=== PATIENT | female | born 1975 | race Caucasian/White ===

== ENCOUNTER 2016-07-26 12:35 | Outpatient (CLI) | payer OTHER ==
[2014-03-10 12:28] VITALS: BP 145/98
--- NOTE | 2016-07-26 16:42 | Diagnostic Imaging Report ---
[facility] [address] [facility].[address] [address] Report Submission Date: Jul 26, 2016 4:40:05 PM CDT Patient Study Name: LINWOOD BLUE Date: Jul 26, 2016 12:53:53 PM CDT Modality Type: CR Gender: F Description: SPINE : 71 Institution: [facility] Physician: ROSHNI GALLEGOS (DISTRIBUTION SPECIALIST) - OP Cervical spine - three views Clinical history: Neck pain. Findings: Examination of the cervical spine in AP, lateral and open mouth views with comparison to examination of 06/25/2013 demonstrates the vertebrae to be anatomically aligned. Prevertebral soft tissues are within normal limits. The C1-2 articulation is normal and the base of the odontoid is intact. There is no evident fracture. Impression: 1. No fracture. 2. No significant change. Electronically signed on Jul 26, 2016 4:40:05 PM CDT by: Taras WYMAN
--- NOTE | 2016-07-26 16:42 | Diagnostic Imaging Report ---
[facility] [address] [facility].[address] [address] Report Submission Date: Jul 26, 2016 4:41:40 PM CDT Patient Study Name: LINWOOD BLUE Date: Jul 26, 2016 1:01:49 PM CDT Modality Type: CR Gender: F Description: SPINE : 71 Institution: [facility] Physician: ROSHNI GALLEGOS (PARTY PLAN SALESPERSON) - OP Lumbar spine - three views Clinical history: Low back pain radiating to the left hip. Findings: Examination lumbar spine in AP, lateral and lateral coned-down views demonstrates mild dextroscoliosis of the thoracolumbar spine. Pedicles are intact and the paravertebral soft tissues are within normal limits. There is no evident fracture. Impression: 1. Mild dextroscoliosis. 2. No fracture. Electronically signed on Jul 26, 2016 4:41:40 PM CDT by: Taras WYMAN
== END 2016-07-26 12:36 ==
LOC: RAD 12:35
PROVIDERS: ATTEND Nurse Practitioner Family
DX: M54.5 Low back pain (principal); M54.2 Cervicalgia
CPT/HCPCS: 72040; 72100

== ENCOUNTER 2016-08-24 12:07 | Outpatient (CLI) | payer OTHER ==
[2014-03-10 12:28] VITALS: BP 145/98
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
== END 2016-08-24 12:08 ==
LOC: RAD 12:07
PROVIDERS: ATTEND Nurse Practitioner Family

== ENCOUNTER 2016-09-10 14:03 | Outpatient (CLI) | payer OTHER ==
[2014-03-10 12:28] VITALS: BP 145/98
== END 2016-09-10 14:04 ==
LOC: POD 14:03
PROVIDERS: ATTEND Podiatrist
DX: L84 Corns and callosities (principal); M79.672 Pain in left foot
CPT/HCPCS: 99213

== ENCOUNTER 2016-10-29 13:34 | Outpatient (CLI) | payer OTHER ==
[2014-03-10 12:28] VITALS: BP 145/98
== END 2016-10-29 13:35 ==
LOC: POD 13:34
PROVIDERS: ATTEND Podiatrist
DX: B07.0 Plantar wart (principal)
CPT/HCPCS: 99213

== ENCOUNTER → 2017-01-21 | Outpatient (CLI) | payer OTHER ==
[2014-03-10 12:28] VITALS: BP 145/98
== END ==
LOC: RAD 09:48
PROVIDERS: ATTEND Nurse Practitioner Family
DX: M85.80 Other specified disorders of bone density and structure, unspecified site (principal)
CPT/HCPCS: 77080

== ENCOUNTER 2017-01-28 13:18 | Outpatient (CLI) | payer MEDICARE, OTHER ==
[2014-03-10 12:28] VITALS: BP 145/98
== END 2017-01-28 13:20 ==
LOC: POD 13:18
PROVIDERS: ATTEND Podiatrist
DX: B07.0 Plantar wart (principal)
CPT/HCPCS: G0463

== ENCOUNTER 2017-02-22 14:23 | Outpatient (CLI) | payer MEDICARE, OTHER ==
[2014-03-10 12:28] VITALS: BP 145/98
== END 2017-02-22 14:24 ==
LOC: POD 14:23
PROVIDERS: ATTEND Podiatrist
DX: B07.0 Plantar wart (principal); M79.672 Pain in left foot
CPT/HCPCS: G0463

== ENCOUNTER 2017-05-10 13:52 | Outpatient (CLI) | payer MEDICARE, OTHER ==
[2014-03-10 12:28] VITALS: BP 145/98
== END 2017-05-10 13:53 ==
LOC: POD 13:52
PROVIDERS: ATTEND Podiatrist
DX: B07.0 Plantar wart (principal); M79.672 Pain in left foot
CPT/HCPCS: G0463

== ENCOUNTER 2018-05-25 09:55 | Outpatient (CLI) | payer MEDICARE, OTHER ==
[2014-03-10 12:28] VITALS: BP 145/98
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
== END 2018-05-25 09:56 ==
LOC: POD 09:55
PROVIDERS: ATTEND Podiatrist Foot & Ankle Surgery
DX: B07.0 Plantar wart (principal)
CPT/HCPCS: 99212; G0463

== ENCOUNTER 2018-05-29 17:59 | Emergency (ER) | payer MEDICARE, OTHER ==
[2018-05-29] MEDS ORDERED: KETOROLAC TROMETHAMINE 60 MG/2 ML VIAL IM ONE (18:13)
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
[2018-05-29 19:39] VITALS: BP 132/74
== END 2018-05-29 19:37 | disposition home or self-care (01) ==
LOC: ED 17:59
DX: S43.401A Unspecified sprain of right shoulder joint, initial encounter (principal); W03.XXXA Other fall on same level due to collision with another person, initial encounter; Y93.89 Activity, other specified; Y92.009 Unspecified place in unspecified non-institutional (private) residence as the place of occurrence of the external cause
CPT/HCPCS: 73030; 96372; 99283; J1885

== ENCOUNTER 2018-06-07 09:02 | Day surgery (SDC) | payer MEDICARE, OTHER ==
[~2018-06-07 09:02] MED LIST: BUPIVACAINE HCL 0.25% (2.5MG/ML) PF 30 ML VIAL IJ ONE; LACTATED RINGERS 1,000 ML IV.SOLN IV ONE; LIDOCAINE HCL 1% PF 300MG/30ML VIAL ONE; LIDOCAINE HCL 2% PF 100MG/5ML VIAL IJ ONE; MIDAZOLAM HCL 2 MG/2 ML VIAL ONE; PROPOFOL 200 MG/20 ML VIAL IV ONE; fentaNYL CITRATE/PF 100 MCG/2 ML INJ. ONE
[2018-06-07] MEDS ORDERED: PREGNANCY TEST KIT 1 EACH KIT MC ONE (09:11)
[2018-06-07] MEDS ORDERED: HYDROcodone /APAP 5/325 1 EACH TABLET ONE (13:36)
--- NOTE | 2018-06-08 10:48 | Operative Note ---
PROCEDURE DATE: 06/07/2018 PREOPERATIVE DIAGNOSIS: Plantar verrucae, left foot x7. POSTOPERATIVE DIAGNOSIS: Plantar verrucae, left foot x7. PROCEDURE PERFORMED: Excision/destruction of plantar verrucae x7 with sharp blade and CO2 laser x7. SURGEON: Glen Parkinson D.P.M. AMUSEMENT PARK WORKER(S): Not applicable. ANESTHESIA: Monitored anesthesia care (MAC) with local ankle block. HEMOSTASIS: Less than 30 mL. MATERIALS: None. INJECTABLES: Local block consisting of a 1:1 mix of 1% lidocaine plain and 0.25% Marcaine plain totaling 20 mL with a circumferential left ankle block. COMPLICATIONS: None. INDICATIONS FOR PROCEDURE: Faviola Martinez is a 43-year-old female who presented to clinic on 05/22/18 for plantar warts on the left foot. She started with only a couple several years before but they have progressively worsened in number and size. She was sent here as a referral from Dr. Destiny Sommers. She has had them total for about 2 years. She has been unsuccessful with other modalities with liquid nitrogen or other liquids, with duct tape, patches, etcetera and she was unable to get them gone from any other means so far including efforts to trim them out by another physician. She would like to have them surgically removed and after discussing other options that is the decision she would like to do. The patient had the risks and benefits of surgery discussed with her that include but are not limited to bleeding, infection, return of verrucae again, need for additional surgery, loss of limb, loss of life and the patient has agreed both by written and verbal consent to go forward with surgery at this time for excision/destruction of plantar verrucae x7 with a CO2 laser possibly as well as sharp debridement. The consent was signed and placed in the chart. The patient had no further questions. The patient underwent a full History and Physical where we went over everything and all her questions were answered appropriately and satisfactorily for the patient. She looked forward to surgery. PROCEDURE IN DETAIL: The patient was brought to the preoperative area today and the operative site was marked with an indelible pen. All warts were marked for surgery today as well. The patient was under sedation, brought to the operating room and placed on the table in a supine position. A time-out was called and all present on the operating room team were in agreement with patient name and location of planned procedure. Monitored anesthesia care anesthesia was then obtained for the patient and under this anesthesia local anesthesia was obtained about the patients left ankle with a circumferential block consisting of 20 mL of a 1:1 mix of 1% lidocaine plain and 0.25% Marcaine plain. The patient then had a left ankle tourniquet applied with appropriate padding. The foot was then scrubbed, prepped and draped with a Betadine prep in order to avoid the chlorhexidine which has alcohol that would be more flammable. After appropriate prep the left foot had an Esmarch bandage applied to exsanguinate the left foot and the tourniquet was inflated to 250 mmHg. A sharp blade was utilized to debride all 7 warts down to bleeding tissue. There was 1 additional spot that was questionable and upon debridement I did not feel that was a new verruca and we left it alone at that time. Upon good excision of overlying tissue at these warts, the CO2 laser was brought over and placed at 3 espinoza. Prior to use of the CO2 laser, however, extra caution was given with regards to everyone using the appropriate goggles and appropriate mask for laser use in the room. We also had very wet blue drapes all around the foot and on the distal part of the table to protect from the laser causing any kind of a flammable problem. With appropriate precautions the CO2 laser was then utilized on all verrucae of the left foot. A curette was then utilized to scrape out charred tissue and this was repeated 2 or 3 times on the different warts from the CO2 laser to the curette again. The edges of the wounds were also cleaned up with a #15 blade. It should be noted that we were able to get just down into the basement membrane and slightly through the basement membrane revealing some fat tissue to know that we have gone far enough to destroy the wart. The patient knew that this would likely be the case and that there would be likely/possible scarring due to penetrating the basement membrane to make sure that we got everything. All sites upon good satisfactory excision of the verrucous material was then lasered one last time with the CO2 laser at a low setting of 3 espinoza. It should be noted that during the serial ablations the wattage was placed at 4 for one of the rounds of ablating the warts. Again, at the final ablation the espinoza were placed at 3.0 to help with cauterizing. Upon completion of this at all the wart surfaces and deeming them satisfactorily removed the ankle tourniquet was deflated and a prompt hyperemic response was noted to all the toes of the left foot. A fairly large amount of bleeding ensued from several of the wound sites. A Bovie tip was then utilized to help with achieving hemostasis which was achieved fairly well at each of the sites. At this time the foot was cleaned and Silvadene, Adaptic, 4x4 gauze, Kerlix and a 4-inch Erasmo wrap were applied for dressings. The patient was emerged from MAC anesthesia and sent to recovery with vital signs stable and vascular status intact to all the toes of the left foot. The patient and her were visited after the surgery and discussed with them again the importance of using the surgical shoe at all times and keeping her foot elevated as much as possible utilizing crutches. She may weight bear a little bit but she was encouraged to keep it very minimal. The patient understands this. She also understands that she is to begin taking the [place] right away after she leaves to stay ahead of the pain. She was given [place] 5/325 mg and can take 1 every 4-6 hours as needed for pain. The patient also was instructed to begin taking a baby aspirin daily just to help with thinning her blood to cover the fact that she may not be using her leg as much right now and to help prevent a blood clot. The patient had no further questions or concerns at this time. She will follow up with me in clinic on Tuesday at the [facility] clinic next door. We will see her to check for any infection. The patient had no further questions, nor did her and they were very grateful for the services today. X GLEN PARKINSON D.P.M. DATE SIGNED TIME SIGNED Yara JOB#: [id number] MTDD
== END 2018-06-07 14:20 | disposition home or self-care (01) ==
LOC: OPSURG 09:02
PROVIDERS: ATTEND Podiatrist Foot & Ankle Surgery
DX: B07.0 Plantar wart (principal)
CPT/HCPCS: 17110; A9270; J2001; J2250; J2704; J3010; J7120

== ENCOUNTER 2018-06-29 11:02 | Outpatient (CLI) | payer MEDICARE, OTHER ==
--- NOTE | 2018-07-03 18:42 | OP Clinic Progress Note ---
SUBJECTIVE: Faviola Martinez is a 43-year-old female who presents to the clinic today for follow-up of plantar wart sharp excision and with CO2 laser performed on 06/07/18. The patient states that she is doing well. She has very minimal pain and is trying to stay off of the foot for the most part. She is using her surgical shoe and crutches. She puts very minimal weight on that left foot. The patient denies any other concerns or problems and does not admit to any fevers, chills, nausea, vomiting, shortness of breath or chest pain at this time. OBJECTIVE: Vitals: Temperature 98.1 degrees Fahrenheit, heart rate 73, respiration rate 14, blood pressure 133/76, oxygen saturation 96% on room air. Vascular: 2+ DP and PT pulses of the left foot. Capillary refill time is less than 3 seconds to the toes, left foot. There is no edema noted, left foot. Dermatologic: There are 7 open lesions still, some with an eschar forming over the top. These eschars for the most part were not very stable and were removed with some not very viable tissue underlying which was debrided to the best of my ability today. These wounds for the most part are still holding a decent amount of depth and I am waiting for them to fill in appropriately so they can heal appropriately. All the unstable eschars were removed today and 1 stable eschar was left underneath the left foot. The wounds have no signs of erythema, purulence or malodor noted. No signs of infection. Overall it seems that the wounds are slightly improving in terms of size and hopefully depth. Musculoskeletal: There is still mild pain on palpation noted with debridement of the surgical sites of the left foot. There are no gross abnormalities noted, left foot. Neurologic: Light touch sensation is intact to the toes, left foot. Psychiatric: Mental status is grossly normal. Affect is normal. ASSESSMENT AND PLAN: 1. Postoperative state, Z98.890. 2. Verrucae plantaris, B07.0, plantar verrucae x7, left foot. 3. Open wound of plantar aspect of foot, left, subsequent encounter, S91.302D (status post surgery excision of plantar warts x7, left foot 06/07/18). PROCEDURE #1: Debridement of 6 open lesions underneath the left foot were performed with a sharp #15 blade own and including subcutaneous tissue measuring less than 20 sq. cm. Mild bleeding was noted but not very much at all. The tissue is struggling to seem very viable underneath these areas still. It seems to be slow to recover from the laser therapy and I am still awaiting these wounds to really kick into gear to heal well. The wounds were rinsed with normal saline and dressed with Medihoney, 4x4 gauze, Kerlix and a 4-inch Erasmo wrap. The patient is to leave the dressings clean, dry and intact until 2 weeks from now when we will see her on a Tuesday in outpatient clinic. We are going to give it a little more time to see if they scab over appropriately and if so we will see if they continue to heal with stable eschars while they heal underneath. Historically these wounds take about 3-6 weeks to heal and we are at about 3 weeks now. The patient knows that we are hoping between 3 and 6 weeks she will be healed and we will continue to have as small amount of pressure on that foot as we can. We will have the patient return to the clinic in 2 weeks as mentioned above for follow-up and then 2-1/2 to 3 weeks after that. The patient has no other questions and we will see her in a couple weeks. Ahsan KruseP.M. (Dictated/Not Signed) Yara Job#: [id number] MTDD
== END 2018-06-29 11:04 ==
LOC: POD 11:02
PROVIDERS: ATTEND Podiatrist Foot & Ankle Surgery
DX: Z98.890 Other specified postprocedural states (principal)
CPT/HCPCS: 11042; A4554

== ENCOUNTER 2018-07-14 08:52 | Outpatient (CLI) | payer MEDICARE, OTHER ==
--- NOTE | 2018-07-18 14:58 | OP Clinic Progress Note ---
SUBJECTIVE: Faviola Martinez is a 43-year-old female presenting today for follow- up postoperative appointment from surgery consisting of sharp excision of plantar warts with CO2 laser performed on 06/07/18. The patient is doing great and states that she is still for the most part staying off of that foot and using the surgical shoe and crutches. She is not putting it in her bathtub water at all during this time. She has no concerns or issues and no pain at this time. OBJECTIVE: Vitals: Temperature 97.4 degrees Fahrenheit, blood pressure 139/80, heart rate 83, respiration rate 15, oxygen saturation 98% on room air. Vascular: 2+ DP and PT pulses of the left foot. Capillary refill time is less than 3 seconds to the toes, left foot. There is no edema noted, left foot. Dermatologic: There are still 7 lesions that are covered with a stable eschar at this time. There is no erythema, edema, malodor or any drainage of any kind noted. There are no other concerning areas or open lesions at all. The size of the eschar area where the wound was seems to be getting smaller at this time. Musculoskeletal: There is no pain on palpation noted on the left foot eschar areas. There are no gross abnormalities noted, left foot. Neurologic: Light touch sensation is intact to the toes, left foot. Psychiatric: Mental status is grossly normal. Affect is normal. ASSESSMENT AND PLAN: 1. Postoperative state, Z98.890. 2. Verrucae plantaris, B07.0, plantar verrucae x7, left foot, history. There were no procedures performed today. The stable dry eschars are being left intact at this time and will be left there until they fall off on their own. The patient is healing underneath them and the wounds seem to be getting smaller on the left foot. A dry Band-Aid was placed over the distal forefoot eschars and one over the great toe eschar for protection. The second toe eschar is stable and incredibly small and left alone. A 4-inch Erasmo wrap was applied around the foot and ankle and this will be left there for protection as well as to keep any swelling down. The patient was encouraged to continue non-weightbearing as much as she can in order to prevent or reduce the likelihood of scarring. The patient would prefer this. She is continuing to use the crutches and understands that she seems to be healing at a little slower rate than most do. The patient understands this and will continue treatment as directed and will follow instructions with limiting weight-bearing. She was told that in the next 2-1/2 weeks toward the end if she starts to have eschars coming off then she is encouraged to use the shower as long as she washes her foot last as long as everything is still looking stable and dry under her foot. She was discouraged from doing any baths with her foot in the water until all the scabs are gone. She understands this and has no further questions. The patient will return to the clinic on August 03, which is a when I get back in town. She knows that I will be out of town the through the this month. She will need to report to her primary care doctor or the ER if there is any concerns in the meantime. Glen Parkinson D.P.M. (Dictated/Not Signed) Yara Job #: [id number] MTDD
== END 2018-07-14 09:40 ==
LOC: POD 08:52
PROVIDERS: ATTEND Podiatrist Foot & Ankle Surgery
DX: Z98.890 Other specified postprocedural states (principal); B07.0 Plantar wart
CPT/HCPCS: 99211; A4554

== ENCOUNTER 2018-08-03 09:13 | Outpatient (CLI) | payer MEDICARE, OTHER ==
--- NOTE | 2018-08-08 14:48 | OP Clinic Progress Note ---
SUBJECTIVE: Faviola Martinez is a 43-year-old female seen for follow-up today of surgery performed on 06/07/18 where she had sharp excision of plantar warts with CO2 laser performed. The patient has been slow to heal and was last seen on 07/14/18. We gave her a few weeks break and left her scabs alone that were on the 7 locations of the left foot last time. She states that just under a week ago she finally stopped wearing the surgical shoe and using the crutches and began walking in a regular shoe. She had mild discomfort at the beginning and now has no pain at all walking around. She is feeling great and hopeful that she can continue her progress. She does not admit to any fevers, chills, nausea, vomiting, shortness of breath or chest pain at this time. She admits to doing showers normally at this time. OBJECTIVE: Vitals: Heart rate 70, respiration rate 16, blood pressure 136/88, O2 saturation is 99% on room air. Vascular: 2+ DP and PT pulses of the left foot. Capillary refill time is less than 3 seconds to the toes, left foot. There is no edema noted, left foot. Dermatologic: There are very mild and thin stable eschars noted at the 7 locations where the warts were removed on the left foot plantarly. There is no erythema, edema, malodor or drainage of any kind. The scabs have very much thinned out and will likely soon be gone on their own. These were left alone today. There are no other concerning areas noted and there is no evidence of any verrucoid lesions on the plantar left foot. Musculoskeletal: There is no pain on palpation noted except for 1 small spot where the largest wart was removed under the second metatarsal head area, left foot. Mild pain on palpation noted there at the scab area but nothing significant. There are no other gross abnormalities noted, left foot. Neurologic: Light touch sensation is intact and there is no numbness felt at the toes, or any portion of the left foot upon exam today. ASSESSMENT AND PLAN: 1. Postoperative state, Z98.890. 2. Verrucae plantaris, B07.0, plantar verrucae x7, left foot, history, removed. There were no procedures performed today. The patient is healing beautifully and the scabs will likely fall off and wear down the rest of the way in the next 2-3 weeks. The patient is okay to continue walking in a regular shoe as she states she is having no pain and has transitioned well slowly into a regular shoe. The patient is okay to continue showering as everything looks to be healed sufficiently. [facility]- up to make sure that everything is healed appropriately and that there are no signs of any verrucoid lesions at that time once the scabs are completely gone. The patient understands this and has no further questions and is happy to finally be at this point. Ahsan KruseP.M. (Dictated/Not Signed) Yara Job#: [id number] MTDD
== END 2018-08-03 09:15 ==
LOC: POD 09:13
PROVIDERS: ATTEND Podiatrist Foot & Ankle Surgery
DX: B07.0 Plantar wart (principal); Z79.890 Hormone replacement therapy
CPT/HCPCS: 99212; A4554